=== PATIENT | male | born 1985 | race Caucasian/White ===

== ENCOUNTER 2017-05-13 05:05 | Emergency (ER) | payer BC ==
[~2017-05-13] VITALS: Ht 172.7 cm; Wt 59.0 kg
--- NOTE | 2017-05-13 05:05 | NUR ---
BIB BY [facility] TO ER BED 10
[2017-05-13 05:10] VITALS: BP 113/66
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
[2017-05-13] MEDS ORDERED: ALPRAZolam 0.5 MG TAB PO SCH (05:35)
--- NOTE | 2017-05-13 05:52 | NUR ---
PO MEDS GIVEN-NADR AT THIS TIME
[2017-05-13 05:57] VITALS: BP 111/65
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
== END 2017-05-13 05:57 ==
LOC: MED 05:05
DX: Z02.89 Encounter for other administrative examinations (principal); F10.11 Alcohol abuse, in remission; F12.10 Cannabis abuse, uncomplicated
CPT/HCPCS: 99283